=== PATIENT | female | born 1965 | race Caucasian/White ===

== ENCOUNTER 2017-01-30 17:13 | Emergency (ER) | payer BC ==
[2017-01-30 17:25] VITALS: BP 168/112
[2017-01-30] MEDS ORDERED: predniSONE 20 MG Tab PO ONE (17:42)
--- NOTE | 2017-01-30 18:06 | EDM.PDOC ---
Scribed by Michelle Gamez 01/30/17 8599 for Pablo Mahoney MD ED HPI GENERAL MEDICAL PROBLEM - General Chief Complaint: Skin Complaint Stated Complaint: BIT BY A BUG AND FACIAL SWELLING Time Seen by Provider: 01/30/17 17:31 Source of Information: Reports: Patient, RN, RN Notes Reviewed History Limitations: Reports: No Limitations - History of Present Illness INITIAL COMMENTS - FREE TEXT/NARRATIVE: [place] was [place] the [place] got bit or stung by something on her left arm and within 15 minutes she developed mild generalized itching on both arms with mild swelling to the face and lips. She took Benadryl 50mg and came to the hospital and by the time she got here, her symptoms had resolved. Denies any swelling under the tongue or throat. Denies any cough, wheezing or difficulty breathing. Onset: Today Location: Reports: Generalized Quality: Reports: Ache Severity: Mild Improves with: Reports: Medication (Benadryl) - Related Data Allergies Allergy/AdvReac Type Severity Reaction Status Date / Time erythromycin base Allergy Rash Verified 01/30/17 17:21 Home Meds: Home Meds Escitalopram [Lexapro] 10 mg PO DAILY 01/30/17 [History] Past Medical History Psychiatric History: Reports: Depression ED ROS GENERAL - Review of Systems Review Of Systems: ROS reveals no pertinent complaints other than HPI. ED EXAM, SKIN/RASH Exam: See Below Exam Limited By: No Limitations General Appearance: Alert, WD/WN, No Apparent Distress Eye Exam: Bilateral Eye: Normal Inspection Ears: Normal External Exam, Normal Canal, Hearing Grossly Normal, Normal TMs Nose: Normal Inspection, Normal Mucosa, No Blood Throat/Mouth: Normal Inspection, Normal Lips, Normal Teeth, Normal Gums, Normal Oropharynx, Normal Voice, No Airway Compromise Head: Atraumatic, Normocephalic Neck: Normal Inspection, Supple, Non-Tender, Full Range of Motion Respiratory/Chest: No Respiratory Distress, Lungs Clear, Normal Breath Sounds, No Accessory Muscle Use, Chest Non-Tender Cardiovascular: Normal Peripheral Pulses, Regular Rate, Rhythm, No Edema, No Gallop, No JVD, No Murmur, No Rub Back Exam: Normal Inspection, Full Range of Motion, NT Extremities: Normal Inspection, Normal Range of Motion, Non-Tender, No Pedal Edema, Normal Capillary Refill Neurological: Alert, Oriented, CN II-XII Intact, Normal Cognition, Normal Gait, Normal Reflexes, No Motor/Sensory Deficits Psychiatric: Normal Affect, Normal Mood Skin: Warm, Dry, Intact, Normal Color, No Rash Lymphatic: No Adenopathy Course - Vital Signs Last Recorded V/S: Last Vital Signs Temp 37.0 C 01/30/17 17:21 Pulse 109 H 01/30/17 17:21 Resp 16 01/30/17 17:21 BP 168/112 H 01/30/17 17:21 Pulse Ox 99 01/30/17 17:21 - Orders/Labs/Meds Meds: Medications Discontinued Medications Generic Name Dose Route Start Last Admin Trade Name Ruby PRN Reason Stop Dose Admin Prednisone 60 mg 01/30/17 17:42 01/30/17 18:05 Prednisone PO 01/30/17 17:43 60 mg ONETIME ONE Administration Departure - Departure Time of Disposition: 17:42 Disposition: Home, Self-Care 01 Condition: Good Clinical Impression: Allergic reaction - Discharge Information Instructions: Angioedema, [id number], Hives Forms: ED Department Discharge Additional Instructions: Take Benadryl 50mg by mouth every 4 to 6 hours as needed for allergic reaction. Do not drive while under the influence of Benadryl. Follow up in clinic if any symptoms return. I have read and agree with the documentation that has been completed regarding this visit. By signing this record, I attest that the documentation was completed in my physical presence and is an accurate record of the encounter.
== END 2017-01-30 18:07 | disposition home or self-care (01) ==
LOC: DL.ED 17:13
DX: T78.40XA Allergy, unspecified, initial encounter (principal); Z88.1 Allergy status to other antibiotic agents; Z79.899 Other long term (current) drug therapy
CPT/HCPCS: 99283; A9270